=== PATIENT | female | born 1980 | race Caucasian/White ===

== ENCOUNTER 2021-02-11 12:04 | Emergency (ER) | payer BC, MEDICAID ==
[~2021-02-11 12:04] MED LIST: ALBU17AE26; AZIT-83 PO; GUAI10SY2 PO; HYDR1TAB PO; IBUP-1051 PO; PRED20TA PO
--- NOTE | 2021-02-11 13:20 | NUR ---
n/a 1241 [id number] n/a 1319
== END 2021-02-11 13:23 | disposition left against medical advice (07) ==
LOC: ER 12:05
DX: L23.7 Allergic contact dermatitis due to plants, except food (principal); Z53.21 Procedure and treatment not carried out due to patient leaving prior to being seen by health care provider

== ENCOUNTER 2023-05-31 23:06 | Emergency (ER) | payer MEDICAID ==
[~2023-05-31] VITALS: Ht 167.6 cm; Wt 77.3 kg
[~2023-05-31 23:06] MED LIST changes: +AZIT-164 PO; -AZIT-83 PO
[2023-05-31 23:11] VITALS: BP 139/94; PULSE 102; RESP 18; TEMP 98.3; O2SAT 100
== END 2023-06-01 00:20 | disposition home or self-care (01) ==
LOC: ER 23:07
DX: S43.205 Unspecified dislocation of left sternoclavicular joint (principal); Z79.899 Other long term (current) drug therapy; X58.XXXD Exposure to other specified factors, subsequent encounter
CPT/HCPCS: 99282